=== PATIENT | male | born 1980 | race Caucasian/White ===

== ENCOUNTER → 2017-02-06 | Outpatient (CLI) | payer OTHER | LOC: FIMAGING 13:03 | PROVIDERS: ATTEND Internal Medicine Hematology & Oncology | DX: S99.922A Unspecified injury of left foot, initial encounter (principal) ==

== ENCOUNTER 2018-02-05 20:51 | Emergency (ER) | payer OTHER ==
[2018-02-05 21:21] LABS: PLATELET COUNT 225 10^3/uL (150-400)
--- NOTE | 2018-02-05 21:36 | CPEKG ---
Heart Rate: 92 RR Interval: 652 P-R Interval: 152 QRSD Interval: 128 QT Interval: 396 QTC Interval: 490 P [place]: 41 QRS [place]: -49 T Wave [place]: 30 EKG Severity - ABNORMAL ECG - EKG Impression: SINUS RHYTHM EKG Impression: MULTIPLE VENTRICULAR PREMATURE COMPLEXES EKG Impression: RBBB AND LAFB EKG Impression: LEFT VENTRICULAR HYPERTROPHY Electronically Signed By: Josefina Bee 05-Feb-2018 23:05:04
[2018-02-05] MEDS ORDERED: HYDROCODONE/APAP 5/325 TAB ONE (22:27)
[2018-02-05] MEDS ORDERED: NS 1,000 ML IV ONE (22:28)
--- NOTE | 2018-02-05 22:32 | EDPHY ---
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 He had a nosebleed at home just prior to arrival. He then fell to the ground and possibly had a syncopal episode. After that he began hyperventilating and developed numbness in his extremities as well as carpopedal spasm. He passed out in the car on the way to the ER. He then awoke and began hyperventilating again. He currently feels much better and the anxiety is under control. Asymptomatic now. Denies chest pain, abdominal pain, dizziness. REVIEW OF SYSTEMS: complete 10 point ROS negative except at noted in the HPI - Personal History Current Tetanus Diphtheria and Acellular Pertussis (TDAP): Unsure - Medical/Surgical History Hx Asthma: Yes Hx Chronic Respiratory Disease: No Hx Diabetes: No Hx Cardiac Disease: No Hx Renal Disease: No Hx Cirrhosis: No Hx Alcoholism: No Hx HIV/AIDS: No Hx Splenectomy or Spleen Trauma: No Other PMH: osteoscarcoma, colon ca, p53 genetic abnormality, endocrine disorder , anxiety - Social History Smoking Status: Former smoker - Physical Exam Exam: General Appearance: Alert, pleasant Eyes: Pupils equal and round, no conjunctival pallor ENT, Mouth: Mucous membranes moist, no active nasal bleeding, no site of bleeding visualized. Neck: Normal inspection Respiratory: Lungs are clear to auscultation Cardiovascular: Regular rate and rhythm Gastrointestinal: Abdomen is soft and nontender Neurological: A&O, nonfocal exam Skin: Warm and dry Extremities: Normal inspection Psychiatric: Mood and affect normal Constitutional: Initial Vital Signs Temperature (C) 36.5 C 02/05/18 20:57 Heart Rate 95 02/05/18 20:57 Respiratory Rate 17 02/05/18 20:57 Blood Pressure 122/91 H 02/05/18 20:57 O2 Sat (%) 100 02/05/18 20:57 O2 Delivery Mode Room Air Allergies/Adverse Reactions: Sulfa (Sulfonamide Antibiotics) Allergy (Verified 02/05/18 20:57) Home Medications: Medication Instructions Recorded Adderall 10 MG (*) 02/05/18 Medical Decision Making - Diagnostics EKG Interpretation: EKG interpreted by me reveals normal sinus rhythm, rate 92, right bundle branch block. Interpretation abnormal EKG ED Course/Re-evaluation: This patient presents after an episode of epistaxis followed by a panic attack. In triage he was hyperventilating and had carpopedal spasm. During my evaluation he is calm and recognizes that he had a panic attack. Physical exam is normal. He feels much better and is ready for discharge home. IV normal saline 1 L given prior to discharge. Differential Diagnosis: Differential diagnosis includes though is not limited to cardiac dysrhythmia, CVA, TIA, severe anemia, hypoglycemia, electrolyte abnormality. - Data Points Laboratory Results: Laboratory Results 02/05/18 21:06 02/05/18 21:06 Medications Given: Discontinued Medications Sodium Chloride (Ns) 1,000 mls @ 0 mls/hr IV ONCE ONE; Wide Open PRN Reason: Protocol Stop: 02/05/18 22:29 Last Admin: 02/05/18 22:40 Dose: 1,000 mls Departure - Departure Disposition: Home, Routine, Self-Care Clinical Impression: Panic attack, Epistaxis Condition: Good Instructions: Panic Attack (ED), Nosebleed (ED) Additional Instructions: Drink plenty of fluids. Return for recurrent symptoms or any concerns. Referrals: LISET KRISHNAMURTHY [Other] - As per Instructions Mable Medina MD [Medical Doctor] - As per Instructions
[2018-02-05 23:20] VITALS: BP 130/76
== END 2018-02-05 23:24 | disposition home or self-care (01) ==
DX: F41.0 Panic disorder [episodic paroxysmal anxiety] (principal); R04.0 Epistaxis; J45.909 Unspecified asthma, uncomplicated; E86.9 Volume depletion, unspecified; Z85.038 Personal history of other malignant neoplasm of large intestine; Z87.891 Personal history of nicotine dependence
CPT/HCPCS: G0480